=== PATIENT | female | born 1945 | race American Indian/Alaskan Native ===

== ENCOUNTER 2019-04-08 13:15 | Outpatient (CLI) | payer MEDICARE ==
--- NOTE | 2019-04-11 10:36 | Mammography Report ---
DIGITAL SCREENING MAMMOGRAM WITH CAD, 04/08/2019 INDICATION: Routine screening mammography. TECHNIQUE: Digital bilateral 2D mammography was obtained in the craniocaudal and mediolateral obliq ue projections. This examination was interpreted with the benefit of Computer-Aided Detection analysi s. COMPARISON: None available at the time of dictation FINDINGS: Breast Density: The breasts are heterogeneously dense, which may obscure small masses. There is no evidence of dominant mass, suspicious calcifications or architectural distortion in eithe r breast. Bilateral vascular calcifications are noted. IMPRESSION: No evidence of malignancy. BI-RADS Category 2: Benign. No mammographic evidence of malignancy. Recommend routine screening ma mmography in one year. A "normal" or negative report should not discourage follow up or biopsy of a clinically significant f inding. A written summary of these findings will be mailed to the patient. The patient will be entered into a mammography reporting system which will generate a reminder letter for the patient's next appointmen t at the appropriate interval. The [employer] recommends yearly mammograms starting at age 40 and continuing as l nubia as a woman is in good health. Breast MRI is recommended for women with an approximate 20-25% or greater lifetime risk of breast cancer, including women with a strong family history of breast or ova ruddy cancer or who have been treated for Hodgkin's disease. Signer Name: More Jean-Baptiste MD Signed: 04/11/2019 10:31 AM Workstation Name: [id number]
== END 2019-04-08 13:16 | disposition home or self-care (01) ==
LOC: SPVWC 13:15
PROVIDERS: ATTEND Internal Medicine Hematology & Oncology
DX: Z12.31 Encounter for screening mammogram for malignant neoplasm of breast (principal); I12.0 Hypertensive chronic kidney disease with stage 5 chronic kidney disease or end stage renal disease; N18.6 End stage renal disease; Z90.710 Acquired absence of both cervix and uterus
CPT/HCPCS: 77067

== ENCOUNTER 2020-04-20 18:36 | Emergency (ER) | payer MEDICARE ==
--- NOTE | 2020-04-20 19:08 | Emergency Department Report ---
ED General Adult HPI - General Stated complaint: BLEEDING FROM PORT PUI?: No Time Seen by Provider: 04/20/20 18:56 Source: patient Mode of arrival: Stretcher Limitations: No Limitations - History of Present Illness Initial comments: THis is a 75 yo female with history of multiple myeloma, end-stage renal disease Thursday who presents from hemodialysis clinic for bleeding from AV fistula. She has had AV fistula for over 5 years. She received full dialysis treatment. After dialysis treatment patient had persistent pulsatile bleeding. Treated with pressure clamp via EMS. Bleeding is now controlled. Patient denies any pain in extremity. She denies shortness of breath. She denies syncope. She has been in good health. I have reviewed patient's personal medication list. She is not on aspirin or anticoagulation therapy. Patient arrived via EMS -: This evening Severity scale (0 -10): 0 Consistency: now resolved Improves with: other (Pressure) Worsens with: none Associated Symptoms: denies other symptoms - Related Data Home Medications Medication Instructions Recorded Confirmed Last Taken Lenalidomide [Revlimid] 5 mg PO QDAY 07/24/15 08/26/16 07/23/15 5 mg Warfarin Sodium [Coumadin] 1 mg PO QDAY 07/24/15 08/26/16 08/26/16 1 mg B Complex 11/Folic/C/Biot/Zinc 1 each PO QDAY 08/26/16 08/26/16 08/26/16 [Dialyvite with Zinc Tablet] Sevelamer Carbonate [Renvela] 800 mg PO QDAY 08/26/16 08/26/16 08/26/16 Previous Rx's Medication Instructions Recorded Last Taken Type carvediloL [Coreg] 3.125 mg PO BID #60 tablet 03/25/14 07/23/15 Rx 3.125mg Amoxicillin/K Clav Tab [Augmentin 1 tab PO Q12HR #28 tab 08/29/16 Unknown Rx 875 mg] Allergies Allergy/AdvReac Type Severity Reaction Status Date / Time aspirin Allergy Itching Verified 06/14/14 07:15 iodine AdvReac Unknown Verified 03/10/14 20:13 ED Review of Systems ROS: Stated complaint: BLEEDING FROM PORT Other details as noted in HPI Comment: All other systems reviewed and negative Constitutional: denies: fever, malaise Respiratory: denies: cough, shortness of breath Gastrointestinal: denies: abdominal pain, nausea, vomiting Neurological: denies: headache, weakness ED Past Medical Hx - Past Medical History Previous Medical History?: Yes Hx Hypertension: Yes Hx Renal Disease: Yes (Tues, Thurs, Sat) Hx Arthritis: Yes (wrists/knees) Hx HIV: No Additional medical history: Left Truncal SHINGLES infection May 2013 - Surgical History Additional Surgical History: hysterectomy - Social History Smoking Status: Never Smoker - Medications Home Medications: Home Medications Medication Instructions Recorded Confirmed Last Taken Type carvediloL [Coreg] 3.125 mg PO BID #60 tablet 03/25/14 08/26/16 07/23/15 Rx 3.125mg Lenalidomide [Revlimid] 5 mg PO QDAY 07/24/15 08/26/16 07/23/15 History 5 mg Warfarin Sodium [Coumadin] 1 mg PO QDAY 07/24/15 08/26/16 08/26/16 History 1 mg B Complex 11/Folic/C/Biot/Zinc 1 each PO QDAY 08/26/16 08/26/16 08/26/16 History [Dialyvite with Zinc Tablet] Sevelamer Carbonate [Renvela] 800 mg PO QDAY 08/26/16 08/26/16 08/26/16 History Amoxicillin/K Clav Tab [Augmentin 1 tab PO Q12HR #28 tab 08/29/16 Unknown Rx 875 mg] ED Physical Exam - General General appearance: alert, in no apparent distress, other (Pleasant comfortable no acute distress) - Head Head exam: Present: atraumatic, normocephalic - Eye Eye exam: Present: normal appearance - ENT ENT exam: Present: mucous membranes moist - Neck Neck exam: Present: normal inspection, full ROM - Respiratory Respiratory exam: Present: normal lung sounds bilaterally. Absent: respiratory distress, wheezes, rales, rhonchi - Cardiovascular Cardiovascular Exam: Present: regular rate, normal rhythm, normal heart sounds. Absent: systolic murmur, diastolic murmur, rubs, gallop - GI/Abdominal GI/Abdominal exam: Present: soft, normal bowel sounds. Absent: distended, tenderness, guarding, rebound - Extremities Exam Extremities exam: Present: other (left upper extremity: gauze in place, Kerlix wrapping, pressure clamp, 2+ radial pulse) - Neurological Exam Neurological exam: Present: alert, oriented X3 - Psychiatric Psychiatric exam: Present: normal affect, normal mood - Skin Skin exam: Present: warm, dry, intact, normal color. Absent: rash ED Medical Decision Making - Medical Decision Making Bleed bleeding from AV fistula left upper arm: 2+ radial pulse, median ulnar radial nerves intact positive thrill and bruit I removed pressure clamp. I replaced Kerlix on top of existing gauze. Upon arrival gauze was dry intact without bleeding. Patient was observed for 1 hour in the emergency department without subsequent bleeding. She understands to keep the gauze in place until her next dialysis appointment. Critical care attestation.: If time is entered above; I have spent that time in minutes in the direct care of this critically ill patient, excluding procedure time. ED Disposition Clinical Impression: Dialysis AV fistula malfunction Disposition: [id number] TO HOME OR SELFCARE Is pt being admited?: No Does the pt Need Aspirin: No Condition: Stable Additional Instructions: Please keep the gauze in place until your next dialysis appointment. Please return to the emergency department if the bleeding recurs.
[2020-04-20 20:09] VITALS: BP 135/84
== END 2020-04-20 20:08 | disposition home or self-care (01) ==
LOC: ED 18:36
DX: T82.590A Other mechanical complication of surgically created arteriovenous fistula, initial encounter (principal); I10 Essential (primary) hypertension; M19.90 Unspecified osteoarthritis, unspecified site; Z90.710 Acquired absence of both cervix and uterus; Z79.899 Other long term (current) drug therapy; Z88.6 Allergy status to analgesic agent; Z88.8 Allergy status to other drugs, medicaments and biological substances
CPT/HCPCS: 99283